=== PATIENT | female | born 1945 | race Caucasian/White ===

== ENCOUNTER 2016-03-09 15:46 | Inpatient (IN) | payer MEDICARE, MEDICAID ==
[~2016-03-09] VITALS: Ht 157.5 cm; Wt 41.7 kg
[2016-03-09] VITALS (291 sets, daily range): BP systolic 138–159; BP diastolic 76–98; PULSE 72–99; TEMP 97.6–97.7; O2SAT 67–100
[~2016-03-09 15:46] MED LIST: ATIVAN 0.50.5 MG/TAB PO; ATIVAN 1MG T1 MG/TAB PO; DULCOLAX TAB5 MG PO; IMODIUM 2MG CAPS2 MG PO; INCRUSE EL62.5 MCG/A IH; IPRATROPIUM BROM3 M1 IH; LEVAQUIN 5500 MG/TA1 PO; LEVAQUIN 750MG750 M1 PO; PREDNISONE10 MG PO; PREDNISONE20 MG PO; PROAIR HFA0.09 MG/AC IH; PROCARDIA XL 3030 MG PO; REMERON 15M15 MG/TA1 PO; RT ADVAIR 228 DISKUS IH; RT SPIRIVA18 MCG IH; THEO-DUR 2200 MG/TAB PO; TYLENOL 325MG325 MG PO; VENTOLIN0.09 MG IH; ZOCOR 20MG20 MG PO; ZOFRAN ODT4 MG PO; ZOLOFT 100MG100 MG PO
[2016-03-09 16:28] LABS: HEMATOCRIT 42.4 % (37.0-47.0); HEMOGLOBIN 13.7 g/dl (12.5-16.0); MEAN CELL VOLUME 92 fl (80.0-100.0); MEAN CORPUSCULAR HEMOGLOBIN 30 pg (27.0-31.0); MEAN CORPUSCULAR HGB CONC 32 g/dl (33.0-37.0); MEAN PLATELET VOLUME 10.6 fl (7.4-10.4); PLATELET COUNT 264 K/mm3 (130-400); RED BLOOD COUNT 4.63 M/mm3 (4.10-5.30); REDCELL DISTRIBUTION WIDTH-CV 12.1 % (11.5-14.5); WHITE BLOOD COUNT 16.1 K/mm3 (4.8-10.8)
[2016-03-09 16:41] LABS: ADD PATHOLOGY DIFF REVIEW NO
[2016-03-09 16:45] LABS: CALCIUM 9.5 mg/dL (8.4-10.2); CREATININE, serum 0.68 mg/dL (0.52-1.25); POTASSIUM 4.2 mmol/L (3.4-5.0)
[2016-03-09 16:45] LABS: VENOUS BLOOD GAS BE 3.5 (-4-4); VENOUS BLOOD GAS SAO2 89.5 % (60-80)
[2016-03-09 16:46] LABS: VENOUS BLOOD GAS SITE VENIPUNCTURE
[2016-03-09 16:57] LABS: TROPONIN-I 0.015 ng/mL (0.000-0.034)
[2016-03-09 17:09] LABS: BAND 22 % (0-10); NEUTROPHILS 69 % (42.0-75.2); PLATELET ESTIMATE NORMAL (NORMAL); TOTAL CELLS COUNTED 100
[2016-03-09 17:22] LABS: INFLUENZA B NEGATIVE
[2016-03-09 21:04] LABS: BRONCH WASH FLUID MONONUCLEAR 55 % (0-75); BRONCH WASH POLY - PMN 45 % (0-25)
[2016-03-09 21:53] LABS: ARTERIAL BLD GAS O2 SATURATION 99.3 % (92-100); ARTERIAL BLD GAS TCO2 CT 26.8; ARTERIAL BLOOD GAS BASE EXCESS -1.6 (-2-2); ARTERIAL BLOOD GAS HCO3 25.2 meq/L (22-26); ARTERIAL BLOOD GAS PHT 7.31 C (7.35-7.45); ARTERIAL BLOOD GAS pH 7.31 (7.35-7.45); OXYHEMOGLOBIN 98.6 %
[2016-03-09 21:58] LABS: ALLEN TEST NO; ARTERIAL BLOOD GAS PO2 321.2 mmHg (80-100); ARTERIAL BLOOD GAS PO2T 321.2 (80-100); ATS? YES
[2016-03-10] VITALS (1059 sets, daily range): BP systolic 109–162; BP diastolic 65–97; PULSE 66–81; TEMP 97.8–99.5; O2SAT 50–100
[2016-03-10 04:51] LABS: ARTERIAL BLD GAS TCO2 CT 28.4; ARTERIAL BLOOD GAS BASE EXCESS 2.8 (-2-2); ARTERIAL BLOOD GAS HCO3 27.2 meq/L (22-26); ARTERIAL BLOOD GAS PHT 7.44 C (7.35-7.45); ARTERIAL BLOOD GAS PO2 56.3 mmHg (80-100); ARTERIAL BLOOD GAS PO2T 56.3 (80-100); ARTERIAL BLOOD GAS pH 7.44 (7.35-7.45); OXYHEMOGLOBIN 89.5 %
[2016-03-10 05:31] LABS: ALLEN TEST NO; ATS? YES
[2016-03-10 06:13] LABS: BASO % 0.1 % (0.0-2.0); GRAN # 7.3 (1.4-6.5); GRAN % 91.9 % (42.2-75.2); LYMPH # 0.3 (1.2-3.4); LYMPH % 3.3 % (20.0-51.0); MEAN CELL VOLUME 90 fl (80.0-100.0); MEAN CORPUSCULAR HGB CONC 33 g/dl (33.0-37.0); MEAN PLATELET VOLUME 11.3 fl (7.4-10.4); MONO # 0.3 (0.1-0.6); MONO % 4.3 % (1.7-9.3); PLATELET COUNT 174 K/mm3 (130-400); REDCELL DISTRIBUTION WIDTH-CV 12.1 % (11.5-14.5)
[2016-03-10 06:14] LABS: HEMATOCRIT 33.4 % (37.0-47.0); HEMOGLOBIN 11.1 g/dl (12.5-16.0); MEAN CORPUSCULAR HEMOGLOBIN 30 pg (27.0-31.0)
[2016-03-10 06:23] LABS: CALCIUM 8.1 mg/dL (8.4-10.2); CREATININE, serum 0.54 mg/dL (0.52-1.25); MAGNESIUM 1.6 mg/dL (1.6-2.3); PHOSPHOROUS 1.6 mg/dL (2.5-4.5); POTASSIUM 3.4 mmol/L (3.4-5.0)
[2016-03-11] VITALS (852 sets, daily range): BP systolic 108–143; BP diastolic 63–93; PULSE 65–92; TEMP 97.7–99.3; O2SAT 32–100
[2016-03-11 04:26] LABS: ALLEN TEST NO; ARTERIAL BLD GAS O2 SATURATION 93.9 % (92-100); ARTERIAL BLD GAS TCO2 CT 27.8; ARTERIAL BLOOD GAS BASE EXCESS 1.6 (-2-2); ARTERIAL BLOOD GAS HCO3 26.5 meq/L (22-26); ARTERIAL BLOOD GAS PHT 7.41 C (7.35-7.45); ARTERIAL BLOOD GAS PO2 70.5 mmHg (80-100); ARTERIAL BLOOD GAS PO2T 70.5 (80-100); ARTERIAL BLOOD GAS pH 7.41 (7.35-7.45); ATS? YES
[2016-03-11 06:43] LABS: MEAN CELL VOLUME 90 fl (80.0-100.0); MEAN CORPUSCULAR HGB CONC 33 g/dl (33.0-37.0); MEAN PLATELET VOLUME 11.2 fl (7.4-10.4); PLATELET COUNT 157 K/mm3 (130-400); RED BLOOD COUNT 3.45 M/mm3 (4.10-5.30); REDCELL DISTRIBUTION WIDTH-CV 12.4 % (11.5-14.5); WHITE BLOOD COUNT 13.4 K/mm3 (4.8-10.8)
[2016-03-11 06:45] LABS: HEMOGLOBIN 10.2 g/dl (12.5-16.0); MEAN CORPUSCULAR HEMOGLOBIN 30 pg (27.0-31.0)
[2016-03-11 06:46] LABS: ADD PATHOLOGY DIFF REVIEW NO
[2016-03-11 06:48] LABS: CREATININE, serum 0.59 mg/dL (0.52-1.25); MAGNESIUM 2.1 mg/dL (1.6-2.3); PHOSPHOROUS 2.1 mg/dL (2.5-4.5); POTASSIUM 3.4 mmol/L (3.4-5.0)
[2016-03-11 07:07] LABS: BAND 23 % (0-10); METAMYELOCYTE 1 % (0-0); NEUTROPHILS 68 % (42.0-75.2); PLATELET ESTIMATE NORMAL (NORMAL); TOTAL CELLS COUNTED 100
[2016-03-11 11:51] LABS: ARTERIAL BLD GAS TCO2 CT 30.2; ARTERIAL BLOOD GAS BASE EXCESS -1.8 (-2-2); ARTERIAL BLOOD GAS HCO3 27.9 meq/L (22-26); ARTERIAL BLOOD GAS PO2 96.9 mmHg (80-100); ARTERIAL BLOOD GAS PO2T 96.9 (80-100); OXYHEMOGLOBIN 95.4 %
[2016-03-11 11:52] LABS: ATS? YES
[2016-03-11 13:32] LABS: ARTERIAL BLD GAS O2 SATURATION 97.5 % (92-100); ARTERIAL BLD GAS TCO2 CT 29.3; ARTERIAL BLOOD GAS BASE EXCESS 0.2 (-2-2); ARTERIAL BLOOD GAS HCO3 27.5 meq/L (22-26); OXYHEMOGLOBIN 96.7 %
[2016-03-11 13:33] LABS: ATS? YES
[2016-03-12] VITALS (822 sets, daily range): BP systolic 140–179; BP diastolic 76–97; PULSE 78–112; TEMP 97.1–99; O2SAT 76–100
[2016-03-12 04:20] LABS: ARTERIAL BLD GAS O2 SATURATION 98.5 % (92-100); ARTERIAL BLD GAS TCO2 CT 27.1; ARTERIAL BLOOD GAS BASE EXCESS -0.9 (-2-2); ARTERIAL BLOOD GAS HCO3 25.5 meq/L (22-26); ARTERIAL BLOOD GAS PHT 7.33 C (7.35-7.45); ARTERIAL BLOOD GAS pH 7.33 (7.35-7.45); OXYHEMOGLOBIN 97.4 %
[2016-03-12 04:22] LABS: ALLEN TEST NO; ARTERIAL BLOOD GAS PO2 143.7 mmHg (80-100); ARTERIAL BLOOD GAS PO2T 143.7 (80-100); ATS? YES
[2016-03-12 05:56] LABS: BASO % 0.1 % (0.0-2.0); GRAN # 11.7 (1.4-6.5); GRAN % 90.3 % (42.2-75.2); LYMPH # 0.5 (1.2-3.4); LYMPH % 3.9 % (20.0-51.0); MEAN CELL VOLUME 91 fl (80.0-100.0); MEAN CORPUSCULAR HGB CONC 33 g/dl (33.0-37.0); MONO # 0.6 (0.1-0.6); MONO % 4.7 % (1.7-9.3); PLATELET COUNT 170 K/mm3 (130-400); RED BLOOD COUNT 3.36 M/mm3 (4.10-5.30); REDCELL DISTRIBUTION WIDTH-CV 12.7 % (11.5-14.5)
[2016-03-12 06:01] LABS: CALCIUM 8.2 mg/dL (8.4-10.2); CREATININE, serum 0.6 mg/dL (0.52-1.25); HEMATOCRIT 30.7 % (37.0-47.0); HEMOGLOBIN 10.1 g/dl (12.5-16.0); MEAN CORPUSCULAR HEMOGLOBIN 30 pg (27.0-31.0); PHOSPHOROUS 2.8 mg/dL (2.5-4.5); POTASSIUM 4.3 mmol/L (3.4-5.0)
[2016-03-13] VITALS (780 sets, daily range): BP systolic 140–160; BP diastolic 80–95; PULSE 78–111; TEMP 97.5–97.9; O2SAT 52–100
[2016-03-13 06:47] LABS: CALCIUM 8.5 mg/dL (8.4-10.2); CREATININE, serum 0.63 mg/dL (0.52-1.25); MAGNESIUM 1.8 mg/dL (1.6-2.3); PHOSPHOROUS 2.7 mg/dL (2.5-4.5); POTASSIUM 3.9 mmol/L (3.4-5.0)
== END 2016-03-13 19:35 | disposition expired | DRG 163 ==
LOC: COL.ER 15:46 → ICU 17:53 → COL.ER 17:53 → ICU 03-13 16:58 → MEDICAL 03-13 16:58
PROVIDERS: Emergency Medicine; Internal Medicine; Internal Medicine Pulmonary Disease
PROC: 5A1945Z Respiratory Ventilation, 24-96 Consecutive Hours (ICD-10-PCS; principal; 2016-03-09)
PROC: 0B958ZZ Drainage of Right Middle Lobe Bronchus, Via Natural or Artificial Opening Endoscopic (ICD-10-PCS; 2016-03-09)
PROC: 0B968ZZ Drainage of Right Lower Lobe Bronchus, Via Natural or Artificial Opening Endoscopic (ICD-10-PCS; 2016-03-09)
PROC: 0B988ZZ Drainage of Left Upper Lobe Bronchus, Via Natural or Artificial Opening Endoscopic (ICD-10-PCS; 2016-03-09)
PROC: 0B9B8ZZ Drainage of Left Lower Lobe Bronchus, Via Natural or Artificial Opening Endoscopic (ICD-10-PCS; 2016-03-09)
PROC: 0BH18EZ Insertion of Endotracheal Airway into Trachea, Via Natural or Artificial Opening Endoscopic (ICD-10-PCS; 2016-03-09)
PROC: 0B968ZZ Drainage of Right Lower Lobe Bronchus, Via Natural or Artificial Opening Endoscopic (ICD-10-PCS; 2016-03-10)
PROC: 0B9B8ZZ Drainage of Left Lower Lobe Bronchus, Via Natural or Artificial Opening Endoscopic (ICD-10-PCS; 2016-03-10)
DX: J96.21 Acute and chronic respiratory failure with hypoxia (principal); E43 Unspecified severe protein-calorie malnutrition; Z68.1 Body mass index [BMI] 19.9 or less, adult; J98.11 Atelectasis; Z66 Do not resuscitate; Z51.5 Encounter for palliative care; J96.22 Acute and chronic respiratory failure with hypercapnia; J44.9 Chronic obstructive pulmonary disease, unspecified; I10 Essential (primary) hypertension; F17.210 Nicotine dependence, cigarettes, uncomplicated
CPT/HCPCS: 99223-AI; 99232-AI; 99233-AI; A4315; C1751; C9113; J0280; J0456; J0696; J1630; J1650; J1956; J2060; J2270; J2543; J2704; J2920; J2930; J3010; J3370; J3475; J3480; J7030; J7040; J7050; J7120